=== PATIENT | male | born 1960 | race Hispanic/Latino ===

== ENCOUNTER 2021-12-25 13:52 | Emergency (ER) | payer MEDICARE, SELFPAY ==
[2021-12-25 14:15] VITALS: BP 125/76; PULSE 82; RESP 16; TEMP 36.9; O2SAT 99
[2021-12-25 14:19] VITALS: BP 125/76; PULSE 82; RESP 16; TEMP 36.9; O2SAT 99
--- NOTE | 2021-12-25 14:35 | ED.WOUNDLAC ---
HPI - Wound/Laceration General Chief Complaint: Wound/Laceration Stated Complaint: Wounds on both legs Time Seen by Provider: 12/25/21 14:35 Source: patient Mode of arrival: ambulatory Limitations: no limitations History of Present Illness HPI narrative: 61-year-old male presents with concern for infection to abrasion on left lower leg. Reports that 1 week ago he was pulling a push mower backwards while mowing the lawn and he ran a metal into his legs. He had an abrasion to left de guzman and bruising to right de guzman. History of diabetes. Concern he may need an antibiotic. All systems reviewed and negative except as noted above. Related Data Home Medications Medication Instructions Recorded Confirmed atorvastatin 40 mg PO DAILY 12/25/21 12/25/21 dulaglutide [Trulicity] 3 mg SUBCUT DIRECTED 12/25/21 12/25/21 empagliflozin [Jardiance] 10 mg PO DIRECTED 12/25/21 12/25/21 insulin aspart U-100 [Novolog 2 sliding scale dose SUBCUT 12/25/21 12/25/21 Flexpen U-100 Insulin] DIRECTED magnesium oxide 400 mg PO DAILY 12/25/21 12/25/21 pantoprazole 40 mg PO DAILY 12/25/21 12/25/21 Allergies Allergy/AdvReac Type Severity Reaction Status Date / Time No Known Allergies Allergy Unverified 12/25/21 14:15 Review of Systems Review of Systems: CONSTITUTIONAL: Denies fever, chills, or sweats. EYES: Denies visual changes, redness, or discharge. ENT: Denies rhinorrhea, congestion, sore throat, or otalgia. CARDIOVASCULAR: Denies chest pain, palpitations, or edema. RESPIRATORY: Denies cough or dyspnea. GASTROINTESTINAL: Denies abdominal pain, nausea, vomiting, or diarrhea. GENITOURINARY: Denies dysuria or hematuria. SKIN: Denies rash or itching. Reports abrasion to left de guzman with redness. MUSCULOSKELETAL: Denies back pain, joint pain, or myalgia. NEUROLOGIC: Denies headache, numbness, or weakness. PSYCHIATRIC: Denies anxiety or depression. All other systems reviewed are negative, except as documented in HPI. PMFSH Comments At time of signature, agree with nursing past medical, surgical, social and family history. There is no relevant family history pertinent to the presenting complaint. Exam Narrative: GENERAL: This is a well-nourished, well-developed patient, in no apparent distress. HEAD: normocephalic, atraumatic. EYES: PERRL. Sclera clear/white. Vision is grossly intact. EARS: External ears normal NOSE: External nose normal NECK: Neck supple, non-tender without lymphadenopathy, masses or thyromegaly. CARDIOVASCULAR: Regular rate and rhythm without murmurs, gallops, or rubs. RESPIRATORY: Clear to auscultation. Breath sounds equal bilaterally. No wheezes, rales, or rhonchi. SKIN: warm, Dry, with no suspicious lesions or rash, good texture and turgor. 2 cm diameter abrasion that is healing to left mid de guzman with surrounding erythema and swelling. Tender on palpation. Mild warmth. No fluctuance or drainage noted. Healing contusion to right de guzman. No signs of infection. NEURO: awake, alert, and oriented to person, place and time. There were no obvious focal neurologic abnormalities. EXTREMITIES: Normal range of motion to all extremities. Delayed Course Course Level of Care: Express Care Visit Vital Signs Vital signs: Vital Signs Temperature 36.9 C 12/25/21 14:15 Pulse Rate 82 12/25/21 14:15 Respiratory Rate 16 12/25/21 14:15 Blood Pressure 125/76 12/25/21 14:15 Pulse Oximetry 99 12/25/21 14:15 Temperature 36.9 C 12/25/21 14:19 Pulse Rate 82 12/25/21 14:19 Respiratory Rate 16 12/25/21 14:19 Blood Pressure 125/76 12/25/21 14:19 Pulse Oximetry 99 12/25/21 14:19 Reviewed MDM - Wound/Laceration MDM Narrative Medical decision making narrative: Patient is aware of diagnosis, understands and agrees to treatment plan. Anticipatory guidance given. Patient agrees to follow-up as directed and is aware of reasons to seek care at the emergency department. Portions of this record may have been
== END 2021-12-25 14:47 | disposition home or self-care (01) ==
PROVIDERS: Emergency Provider Nurse Practitioner Family; PCP Family Medicine
DX: L03.116 Cellulitis of left lower limb (principal); E78.00 Pure hypercholesterolemia, unspecified; I10 Essential (primary) hypertension; K21.9 Gastro-esophageal reflux disease without esophagitis; E11.9 Type 2 diabetes mellitus without complications; Z94.0 Kidney transplant status
CPT/HCPCS: 99213; G0463

== ENCOUNTER 2022-07-09 09:59 | Emergency (ER) | payer MEDICARE, SELFPAY ==
[2022-07-09 10:26] VITALS: BP 126/80; PULSE 82; RESP 18; TEMP 36.3; O2SAT 98
--- NOTE | 2022-07-09 10:43 | ED.WOUNDLAC ---
HPI - Wound/Laceration General Chief Complaint: Skin/Abscess/Foreign Body Stated Complaint: Rash On Right side of Face, Inside Mouth Time Seen by Provider: 07/09/22 10:43 Source: patient Mode of arrival: ambulatory Limitations: no limitations History of Present Illness HPI narrative: 61-year-old male with hx DM and renal transplant (2008) presented for complaints of right facial swelling, pain, and drainage worsening over the past 5 days. He states it started as a small cluster of vesicles under the right eye, has spread down his cheek and over to his nose and lips. He has green/yellow drainage coming from the eye. Endorses pain shooting from his jaw towards the cheek. He has painful vesicles on his nose, lips, and inside of his mouth. He endorses pain is worse with swallowing and eating. He denies shortness of breath, wheezing, nausea, vomiting, fevers or chills He has not taken anything for symptoms. Related Data Home Medications Medication Instructions Recorded Confirmed atorvastatin 40 mg tablet 40 mg PO DAILY 12/25/21 07/09/22 dulaglutide 3 mg/0.5 mL 3 mg subcut DIRECTED 12/25/21 07/09/22 subcutaneous pen injector (Trulicity) empagliflozin 10 mg tablet 10 mg PO DIRECTED 12/25/21 07/09/22 (Jardiance) insulin aspart U-100 100 unit/mL 2 sliding scale dose subcut 12/25/21 07/09/22 (3 mL) subcutaneous pen (Novolog DIRECTED Flexpen U-100 Insulin aspart) magnesium oxide 400 mg (241.3 mg 400 mg PO DAILY 12/25/21 07/09/22 magnesium) tablet pantoprazole 40 mg tablet,delayed 40 mg PO DAILY 12/25/21 07/09/22 release Allergies Allergy/AdvReac Type Severity Reaction Status Date / Time No Known Allergies Allergy Verified 07/09/22 10:31 Review of Systems Review of Systems: CONSTITUTIONAL: Denies body aches, fever, chills, or sweats. EYES: Denies visual changes, redness, or discharge. ENT: Denies rhinorrhea, congestion CARDIOVASCULAR: Denies chest pain, palpitations, or edema. RESPIRATORY: Denies cough or dyspnea. GASTROINTESTINAL: Denies abdominal pain, nausea, vomiting, or diarrhea. SKIN: per HPI MUSCULOSKELETAL: Denies back pain, joint pain, or myalgia. NEUROLOGIC: Denies headache, numbness, tingling, or weakness. PMFSH Comments At time of signature, I have reviewed and agree with nursing past medical, surgical, social and family history unless otherwise noted. Please see nursing chart for further information. There is no relevant family history pertinent to the presenting complaint Exam Narrative: GENERAL: Well-appearing HEAD: Normocephalic, atraumatic. EYES: conjunctivae clear, and EOMI. ENT: Mucous membranes moist. Airway patent, no soft palate swelling NECK: Supple. right anterior lymphadenopathy CHEST: Clear to auscultation. HEART: Regular rate and rhythm. SKIN: Warm, dry. Right facial swelling and erythema; tender to palpation; large amount of tender vesicles to right face, oral mucosa, lips, inner/outer right nare c/w zoster lesions, mild swelling to upper lip, purulent drainage from right eye NEURO: Alert and oriented x3. Course Course Emergency Course: Patient is aware of diagnosis, understands and agrees to treatment plan. Anticipatory guidance given. Portions of this record may have been created with voice recognition software Level of Care: Express Care Visit Vital Signs Vital signs: Vital Signs Temperature 97.4 F L 07/09/22 10:26 Pulse Rate 82 07/09/22 10:26 Respiratory Rate 18 07/09/22 10:26 Blood Pressure 126/80 07/09/22 10:26 Pulse Oximetry 98 07/09/22 10:26 Oxygen Delivery Room Air 07/09/22 10:26 Temperature 97.4 F L 07/09/22 10:26 Pulse Rate 82 07/09/22 10:26 Respiratory Rate 18 07/09/22 10:26 Blood Pressure 126/80 07/09/22 10:26 Pulse Oximetry 98 07/09/22 10:26 Oxygen Delivery Room Air 07/09/22 10:26 Reviewed Transfer Transfered to: [facility] Hospital Transportation: Other (private vehicle) Transfer
== END 2022-07-09 11:02 | disposition short-term general hospital (02) ==
PROVIDERS: Emergency Provider Nurse Practitioner Family; PCP Family Medicine
DX: L03.211 Cellulitis of face (principal); B02.8 Zoster with other complications; Z79.4 Long term (current) use of insulin
CPT/HCPCS: 99212; G0463